=== PATIENT | female | born 1975 | race Hispanic/Latino ===

== ENCOUNTER 2016-08-30 18:23 | Emergency (ER) | payer OTHER ==
[~2016-08-30] VITALS: Ht 170.2 cm; Wt 104.3 kg
[2016-08-30 19:25] LABS: PLATELET COUNT 435 K/uL (152-353)
[2016-08-30 19:34] LABS: POTASSIUM 3.5 mmol/L (3.6-5.2)
[2016-08-30 20:23] VITALS: BP 134/79; TEMP 98
== END 2016-08-30 20:25 | disposition home or self-care (01) ==
LOC: ED 18:23
DX: L50.8 Other urticaria (principal)
CPT/HCPCS: 36415; 80048; 85027; 96374; 96375; 99284; J1200; J2930